=== PATIENT | male | born 1990 | race Hispanic/Latino ===

== ENCOUNTER 2023-11-07 17:35 | Emergency (ER) | payer OTHER ==
[2023-11-07] MEDS ORDERED: ACETAMINOPHEN 500 MG TAB ONE (18:05)
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
--- NOTE | 2023-11-07 19:20 | RAD REPORT ---
EXAM DESCRIPTION: RAD - Hand Right 3 View - 11/07/2023 7:09 pm CLINICAL HISTORY: SWELLING COMPARISON: <Comparisons> FINDINGS: Dorsal soft tissue swelling is seen. No fracture is evident. Incomplete assessment of the fourth and fifth carpometacarpal joint due to patient position.
--- NOTE | 2023-11-07 19:20 | RAD REPORT ---
EXAM DESCRIPTION: RAD - Hand Left 3 View - 11/07/2023 7:09 pm CLINICAL HISTORY: SWELLING COMPARISON: <Comparisons> FINDINGS: Dorsal soft tissue swelling. No acute fracture visualized.
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
[2023-11-08 02:21] VITALS: BP 146/86; TEMP 97.8; O2SAT 100
== END 2023-11-07 19:42 | disposition home or self-care (01) ==
LOC: ER 17:35
DX: S00.83XA Contusion of other part of head, initial encounter (principal); S60.222A Contusion of left hand, initial encounter; S60.221A Contusion of right hand, initial encounter; Y04.8XXA Assault by other bodily force, initial encounter
CPT/HCPCS: 70450; 70486; 71250; 72125; 76377; 99284